=== PATIENT | male | born 1970 | race Caucasian/White ===

== ENCOUNTER 2020-03-25 10:03 | Emergency (ER) | payer BC, OTHER ==
[2020-03-25] MEDS ORDERED: Proparacaine 0.5% Ophth Soln 15 ML Bottle EYERT PRN (10:30)
[2020-03-25] MEDS ORDERED: Fluorescein 1 MG Ophth Strip EYERT ONE (10:32)
[2020-03-25 10:40] VITALS: BP 154/93; PULSE 69
[2020-03-25] MEDS ORDERED: Ciprofloxacin 0.3% Ophth Soln 2.5 ML Bottle EYERT ONE (10:45)
--- NOTE | 2020-03-25 10:51 | EDM.PDOC ---
ED HPI GENERAL MEDICAL PROBLEM - General Chief Complaint: Eye Problems Stated Complaint: RIGHT EYE Time Seen by Provider: 03/25/20 10:30 Source of Information: Reports: Patient History Limitations: Reports: No Limitations - History of Present Illness INITIAL COMMENTS - FREE TEXT/NARRATIVE: Patient comes emergency department today with complaints of eye irritation bilaterally. 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 He noticed last night that he got something in both of his eyes despite him wearing his protective eye goggles. He rinsed his eyes with copious amounts of fluids last night. He continues to have the sensation of irritation and pain to his bilateral eyes. His right eye is on the lateral aspect and his left eye is on the medial aspect. He denies any diplopia. No visual acuity changes. No headache. He is unsure when his last tetanus shot was. Right Eye Pain Score (Numeric/FACES): 5 - Related Data Allergies Allergy/AdvReac Type Severity Reaction Status Date / Time No Known Allergies Allergy Verified 03/25/20 10:42 Home Meds: Home Meds . [No Known Home Meds] 02/18/14 [History] Past Medical History - Past Health History Medical/Surgical History: Denies Medical/Surgical History ED ROS GENERAL - Review of Systems Review Of Systems: Comprehensive ROS is negative, except as noted in HPI. ED EXAM GENERAL W FULL EYE - Physical Exam Exam: See Below Exam Limited By: No Limitations General Appearance: Alert, WD/WN, No Apparent Distress Eye Exam: Bilateral Eye: Conjunctival Injection, Corneal Abrasion (See course f or description of abrasions bilaterally. ), PERRL, Other (Minimally injected sclera bilaterally without exudate or discharge. ) Visual Acuity (R) 20/: 30 Visual Acuity (L) 20/: 25 Eyelids: Bilateral: Normal Appearance Conjunctiva & Sclera: Bilateral: Injected Cornea Exam: Bilateral: Corneal Abrasion, Examined with Flourescein Extraocular Movements: Bilateral: Intact Pupils: Normal Accommodation Pupillary Size: Bilateral: 3 mm Pupillary Reaction: Bilateral: Brisk Course - Vital Signs Last Recorded V/S: Last Vital Signs Temp 98.1 F 03/25/20 10:15 Pulse 69 03/25/20 10:15 Resp 16 03/25/20 10:15 BP 154/93 H 03/25/20 10:15 Pulse Ox 97 03/25/20 10:15 - Orders/Labs/Meds Orders: Active Orders 24 hr Category Date Time Status Proparacaine [Proparacaine 0.5% Ophth Soln] Med 03/25/20 10:30 Active 1 ml EYERT ASDIRECTED PRN Medication Orders Proparacaine HCl (Proparacaine 0.5% Ophth Soln) 1 ml EYERT ASDIRECTED PRN PRN Reason: Other Last Admin: 03/25/20 10:35 Dose: 1 ml Documented by: ASHLI Meds: Medications Generic Name Dose Route Start Last Admin Trade Name Freq PRN Reason Stop Dose Admin Proparacaine HCl 1 ml 03/25/20 10:30 03/25/20 10:35 Proparacaine 0.5% Ophth Soln EYERT 1 ml ASDIRECTED PRN Administration Other Discontinued Medications Generic Name Dose Route Start Last Admin Trade Name Freq PRN Reason Stop Dose Admin Ciprofloxacin 1 ml 03/25/20 10:45 Ciloxan 0.3% Ophth Soln EYERT 03/25/20 10:46 ONETIME ONE Fluorescein Sodium 1 mg 03/25/20 10:32 03/25/20 10:35 Ful-Kait EYERT 03/25/20 10:33 1 mg ONETIME ONE Administration - Re-Assessments/Exams Free Text/Narrative Re-Assessment/Exam: 03/25/20 10:48 Last tetanus was in 2013. The patient's eyes were anesthetized with proparacaine. The eyes were stained with fluorescein bilaterally. Examination of the eye under the Avila lamp demonstrates on the right eye at the very lateral canthus of the right cornea at about the 9 o'clock position a small pinpoint corneal abrasion. There is no foreign material or debris on the cornea or under the eyelids. There is no exudate. The rest of the right eye is un remarkable. Examination of the left eye under the Avila lamp on the medial canthus at the 9 o'clock position shows about a eraser tip sized corneal abrasion. Does not extend over the iris. There is no foreign material or debris on the cornea or under the eyelids. There is no exudate. Pupillary responses equal bilaterally and appropriate. Cipro eye drops for prophylaxis of infection. Discussed the plan of care with the patient and his questions were answered and he was comfortable with this plan. Departure - Departure Time of Disposition: 10:45 Disposition: Home, Self-Care 01 Clinical Impression: Bilateral corneal abrasions Qualifiers: Encounter type: initial encounter Qualified Code(s): S05.01XA - Injury of conjunctiva and corneal abrasion without foreign body, right eye, initial encounter - Discharge Information Instructions: Corneal Abrasion, [id number] Referrals: Zana Cordoba, [employer]GUIDE [Primary Care Provider] - Forms: ED Department Discharge Additional Instructions: Tylenol and or Ibuprofen as needed for pain. Cipro eye drops, 2 drops to each eye every 4 hrs for the next 5 days. You should be 90% better in 24 hours and 100% better in 48 hrs. If you are not following this pattern you must see optometry or opthamology. Return to the ED if new or worsening symptoms. Sepsis Event Note (ED) - Evaluation Sepsis Screening Result: No Definite Risk - Focused Exam Vital Signs: Vital Signs Temp Pulse Resp BP Pulse Ox 03/25/20 10:15 98.1 F 69 16 154/93 H 97 - My Orders Last 24 Hours: My Active Orders 03/25/20 10:30 Proparacaine [Proparacaine 0.5% Ophth Soln] 1 ml EYERT ASDIRECTED PRN - Assessment/Plan Last 24 Hours: My Active Orders 03/25/20 10:30 Proparacaine [Proparacaine 0.5% Ophth Soln] 1 ml EYERT ASDIRECTED PRN
== END 2020-03-25 10:57 | disposition home or self-care (01) ==
LOC: VM.ED 10:03
DX: S05.02XA Injury of conjunctiva and corneal abrasion without foreign body, left eye, initial encounter (principal); S05.01XA Injury of conjunctiva and corneal abrasion without foreign body, right eye, initial encounter; W22.8XXA Striking against or struck by other objects, initial encounter; Y99.0 Civilian activity done for income or pay
CPT/HCPCS: 99283; A9270-GY

== ENCOUNTER 2020-12-20 11:58 | Emergency (ER) | payer BC, OTHER ==
--- NOTE | 2020-12-20 12:30 | EDM.PDOC ---
ED HPI GENERAL MEDICAL PROBLEM - General Chief Complaint: General Stated Complaint: Side Effects from Moderna shot Time Seen by Provider: 12/20/20 12:05 Source of Information: Reports: Patient History Limitations: Reports: No Limitations - History of Present Illness INITIAL COMMENTS - FREE TEXT/NARRATIVE: Patient comes emergency department today from home with complaints of side effects from his Maderna injection for COVID. This patient on Monday received his second dose of his Maderna vaccination for Covid. Yesterday he started having some generalized body aches. Last night at home he had profuse sweating and then chills. This lasted most of the night. He did not take any antipyretics to include Tylenol or ibuprofen. Today he feels quite a bit better and almost back to normal but he is concerned about why he was so sweaty and chilled last night. He has had no cough or congestion. No difficulty breathing. No chest pain no palpitations weakness dizziness lightheadedness. He said no abdominal pain nausea or vomiting. No hematuria dysuria or urinary frequency. No black or tarry stools or diarrhea. No flank pain. No rash sores or lesions. He has not been exposed to anyone with Covid. He did not read his Covid vaccination information sheet. He otherwise is felt fine the last couple of days and he feels almost back to normal at this time. - Related Data Allergies Allergy/AdvReac Type Severity Reaction Status Date / Time No Known Allergies Allergy Verified 12/20/20 12:14 Home Meds: Home Meds . [No Known Home Meds] 02/18/14 [History] Past Medical History - Past Health History Medical/Surgical History: Denies Medical/Surgical History Cardiovascular History: Reports: High Cholesterol, Hypertension ED ROS GENERAL - Review of Systems Review Of Systems: Comprehensive ROS is negative, except as noted in HPI. ED EXAM, GENERAL - Physical Exam Exam: See Below Exam Limited By: No Limitations General Appearance: Alert, WD/WN, No Apparent Distress Ears: Normal External Exam, Normal TMs Nose: Normal Inspection, Normal Mucosa, No Blood Throat/Mouth: Normal Inspection, Normal Lips, Normal Teeth, Normal Gums, Normal Oropharynx, Normal Voice, No Airway Compromise Head: Atraumatic, Normocephalic Neck: Normal Inspection, Supple, Non-Tender, Full Range of Motion Respiratory/Chest: No Respiratory Distress, Lungs Clear, Normal Breath Sounds, No Accessory Muscle Use, Chest Non-Tender Cardiovascular: Normal Peripheral Pulses, Regular Rate, Rhythm, No Murmur GI/Abdominal: Normal Bowel Sounds, Soft, Non-Tender (Male) Exam: Deferred Rectal (Males) Exam: Deferred Back Exam: Normal Inspection, Full Range of Motion Extremities: Normal Inspection, Normal Range of Motion, Non-Tender, No Pedal Edema, Normal Capillary Refill Neurological: Alert, Oriented, CN II-XII Intact, Normal Cognition, Normal Gait, Normal Reflexes, No Motor/Sensory Deficits Psychiatric: Normal Affect, Normal Mood Skin Exam: Intact, Normal Color, Cool, Diaphoretic Lymphatic: No Adenopathy Course - Orders/Labs/Meds Labs: Laboratory Tests 12/20/20 12/20/20 Range/Units 12:15 12:15 WBC 9.3 (4.0-10.0) x10^3/uL RBC 5.25 (4.5-6.0) x10^6/uL Hgb 15.8 (14.0-18.0) g/dL Hct 44.4 (40.0-52.0) % MCV 84.6 (78.0-93.0) fL MCH 30.1 (26.0-32.0) pg MCHC 35.6 (32.0-36.0) g/dL RDW Coeff of Tariq 12.8 (10.0-15.0) % Plt Count 271 (130-400) x10^3/uL Add Manual Diff Yes Neutrophils % (Manual) 66 (50-80) % Lymphocytes % (Manual) 20 L (25-50) % Monocytes % (Manual) 14 H (2-11) % Platelet Estimate Adequate Sodium 142 (136-145) mmol/L Potassium 3.9 (3.5-5.1) mmol/L Chloride 105 (98-107) mmol/L Carbon Dioxide 24 (21-32) mmol/L Anion Gap 16.9 H (5-15) mmol/L BUN 16 (7-18) mg/dL Creatinine 0.9 (0.70-1.30) mg/dL Est Cr Clr Drug Dosing TNP Estimated GFR (MDRD) > 60 Glucose 103 H (70-99) mg/dL Calcium 8.4 L (8.5-10.1) mg/dL C-Reactive Protein 5.7 H (<=0.9) mg/dL Meds: Medications Discontinued Medications Generic Name Dose Route Start Last Admin Trade Name Zak PRN Reason Stop Dose Admin Ibuprofen 600 mg 12/20/20 12:31 12/20/20 12:43 Ibuprofen 200 Mg Tab PO 12/20/20 12:32 600 mg NOW STA Administration - Re-Assessments/Exams Free Text/Narrative Re-Assessment/Exam: 12/20/20 14:13 The patient's laboratory evaluation is rather unremarkable. He has a mild elevation of his CRP with a normal white blood cell count. The CRP is most likely due to the inflammatory response caused by the vaccination for Covid. He really has very typical side effects from vaccination for Covid. We will discharge him home at this time. He can use antipyretics for his body aches as well as his fever and chills. Make sure he is drinking plenty of fluids. Recheck if anything new or worse. He is comfortable with this plan his questions were answered. Departure - Departure Time of Disposition: 12:45 Disposition: Home, Self-Care 01 Clinical Impression: Side effect of medication - Discharge Information Referrals: Zana Cordoba, FAIZAN [Primary Care Provider] - Forms: ED Department Discharge, ED Return to Work/School Form Additional Instructions: Home rest today. Make sure and drink plenty of fluids to keep well hydrated. Tylenol as needed for body aches chills and discomfort. Recheck in the clinic if any continued problems in a week.
[2020-12-20 12:38] LABS: ANION GAP 16.9 mmol/L (5-15); CHLORIDE,CL 105 mmol/L (98-107); SODIUM,NA 142 mmol/L (136-145)
[2020-12-20] MEDS: Ibuprofen 200 MG Tab PO STA (12:43)
[2020-12-20 14:30] VITALS: BP 138/92; PULSE 85
== END 2020-12-20 13:16 | disposition home or self-care (01) ==
LOC: VM.ED 11:58
DX: R52 Pain, unspecified (principal); R61 Generalized hyperhidrosis; R68.83 Chills (without fever); T50.B95A Adverse effect of other viral vaccines, initial encounter
CPT/HCPCS: 36415; 80048; 85025; 86140; 99283; A9270-GY

== ENCOUNTER 2022-02-28 14:36 | Emergency (ER) | payer OTHER, BC ==
[2022-02-28] MEDS ORDERED: Lidocaine 1% 5 ML VIAL INJECT ONE (14:59)
[2022-02-28 17:04] VITALS: BP 137/88; PULSE 66
== END 2022-02-28 15:35 | disposition home or self-care (01) ==
LOC: VM.ED 14:36
DX: S61.411A Laceration without foreign body of right hand, initial encounter (principal); I10 Essential (primary) hypertension; W31.89XA Contact with other specified machinery, initial encounter
CPT/HCPCS: 12002; 99282; 99283